=== PATIENT | female | born 1990 | race Caucasian/White ===

== ENCOUNTER 2017-10-13 17:24 | Emergency (ER) | payer OTHER ==
[2017-10-13 18:10] VITALS: BP 121/69
--- NOTE | 2017-10-13 18:14 | UC ---
[facility] HPI - HPI Summary HPI Summary: Pt presents with right upper tooth dental abscess. She called her PCP 3 days ago and was placed on clindamycin without being seen. Since that time pt says that her pain is well controlled with ibuprofen, but the swelling is increasing on the right side of her face. No vision trouble. Is able to eat and drink, but has pain with opening her mouth. Denies fever, chills, SOB, trouble breathing, chest pain, n/v/d/c. - History of Current Complaint Chief Complaint: UCDentalProblem Stated Complaint: DENTAL PAIN Time Seen by Provider: 10/13/17 18:13 Hx Obtained From: Patient Hx Last Menstrual Period: 09/07/17 Onset/Duration: Gradual Onset Pain Intensity: 0 - Allergies/Home Medications Allergies/Adverse Reactions: Allergies Allergy/AdvReac Type Severity Reaction Status Date / Time MS Penicillins [Penicillins] Allergy Mild Rash Verified 10/13/17 17:59 animal dander Allergy Difficulty Verified 10/13/17 18:01 Breathing MS Dust Mite Extract Allergy Coughing Verified 10/13/17 17:59 [Dust Mite Extract] MS Pollen Extract Allergy Coughing Verified 10/13/17 17:59 [Pollen Extract] Home Medications: Home Medications Cetirizine* [ZyrTEC 10 MG TAB*] 10/13/17 [History] Clindamycin CAP* [Clindamycin CAP 150 MG CAP*] 300 mg PO QID PRN 10/13/17 [ History Confirmed 10/13/17] Divalproex DR TAB(*) [Depakote DR TAB(*)] 10/13/17 [History] PMH/Surg Hx/FS Hx/Imm Hx Other History Of: Hepatitis C - Surgical History Surgical History: None - Family History Family History: NON CONTRIBUTORY - Social History Occupation: Employed Full-time Lives: With Family Alcohol Use: Occasionally Substance Use Type: None Smoking Status (MU): Light Every Day Tobacco Smoker Type: Cigarettes Amount Used/How Often: 1 PACK/WEEK Household Exposure Type: Cigarettes - Immunization History Most Recent Tetanus Shot: up to date Review of Systems Constitutional: Negative Skin: Negative Eyes: Negative ENT: Dental Pain Respiratory: Negative Cardiovascular: Negative Gastrointestinal: Negative Neurological: Negative Psychological: Negative All Other Systems Reviewed And Are Negative: Yes Physical Exam Triage Information Reviewed: Yes Appearance: Well-Appearing, No Pain Distress, Well-Nourished Vital Signs: Initial Vital Signs Temp 97.9 F 10/13/17 18:02 Pulse 80 10/13/17 18:02 Resp 18 10/13/17 18:02 BP 121/69 10/13/17 18:02 Pulse Ox 100 10/13/17 18:02 Vital Signs Reviewed: Yes Eyes: Positive: Conjunctiva Clear, Other: - EOMI. Negative: Conjunctiva Inflamed, Discharge ENT: Positive: Hearing grossly normal, Pharynx normal, TMs normal, Dental tenderness, Uvula midline, Other - Moderate swelling to right upper cheek. No erythema. Negative: Pharyngeal erythema, Nasal congestion, Nasal drainage, TM bulging, TM dull, TM red, Tonsillar swelling, Tonsillar exudate, Hoarse voice, Sinus tenderness Dental: Positive: Percussion Tenderness @ - Tooth 15, Gross Decay/Caries @ - throughout, Dental Fracture @ - Tooth 15, Abscess @ - Tooth 15. Negative: Cervical Lymphadenopathy, Bleeding Neck: Positive: Supple, Nontender, No Lymphadenopathy Respiratory: Positive: Lungs clear, Normal breath sounds, No respiratory distress Cardiovascular: Positive: RRR, No Murmur, Pulses Normal Neurological: Positive: Alert Psychological: Positive: Age Appropriate Behavior Dental Complaint Course/Dx - Course Course Of Treatment: I had a long conversation with the pt regarding her condition. I suspect she has a dental abscess. She tells me that she has been on clindamycin multiple times over the last 5 years because she does not have a dentist and is picky about finding one for herself. I told her that it is possible her current abscess is resistant to clindamycin and she should seek further evaluation in the ED. She refused and wanted to try outpatient therapy. Given her allergies, antibiotic options are limited - I will try her with flagyl. I stressed to her the importance of going to the ED should her symptoms persist or worsen beyond 48 hours despite the addition of flagyl. She was in agreement with this plan. - Differential Dx/Diagnosis Provider Diagnoses: Dental abscess. Tooth fracture #15 Discharge - Discharge Plan Condition: Stable Disposition: HOME Prescriptions: Chlorhexidine MOUTHWASH 0.12%* [Peridex Mouth Wash 0.12%*] 15 ml PO BID #150 btl metroNIDAZOLE TAB* [Flagyl 250 mg TAB*] 250 mg PO TID #30 tab Patient Education Materials: Dental Abscess (ED) Referrals: Robyn Moreau MD [Primary Care Provider] - Additional Instructions: If you develop a fever, shortness of breath, chest pain, new or worsening symptoms - please call your PCP or go to the ED. 1) If your symptoms persist or worsen despite these additional antibiotics - please go directly to the ED.
== END 2017-10-13 18:42 | disposition home or self-care (01) ==
LOC: UCEAST 17:24
DX: F17.210 Nicotine dependence, cigarettes, uncomplicated (principal); K04.7 Periapical abscess without sinus; S02.5XXA Fracture of tooth (traumatic), initial encounter for closed fracture; Z88.0 Allergy status to penicillin
CPT/HCPCS: 99211; G0463

== ENCOUNTER 2018-12-21 17:56 | Emergency (ER) | payer OTHER ==
[2018-12-21 18:24] VITALS: BP 112/65
--- NOTE | 2018-12-21 19:57 | UC ---
[facility] HPI - HPI Summary HPI Summary: 28-year-old female presents with 4-5 day history of sore throat, nasal congestion, runny nose, and nonproductive cough. She also complains of 3 days of diarrhea. States she's been having 2-3 episodes a day typically first thing in the morning. Associated with some mild cramping that is relieved after defecation. Denies fever, chills, ear pain, dysphagia, chest pain, shortness of breath, nausea, or vomiting. - History of Current Complaint Chief Complaint: UCRespiratory Stated Complaint: RUNNY NOSE, HEADACHE, AND NAUSEA Time Seen by Provider: 12/21/18 19:18 Hx Obtained From: Patient Hx Last Menstrual Period: tubal Pain Intensity: 0 - Allergy/Home Medications Allergies/Adverse Reactions: Allergies Allergy/AdvReac Type Severity Reaction Status Date / Time animal dander Allergy Difficulty Verified 12/21/18 18:25 Breathing Penicillins Allergy Rash Verified 12/21/18 18:25 pollen extracts Allergy Coughing Verified 12/21/18 18:25 dust mites Allergy Coughing Uncoded 12/21/18 18:25 Home Medications: Home Medications NK [No Home Medications Reported] 12/21/18 [History Confirmed 12/21/18] PMH/Surg Hx/FS Hx/Imm Hx Previously Healthy: Yes Other History Of: Hepatitis C - Surgical History Surgical History: Yes Surgery Procedure, Year, and Place: tubal ligation, 3 teeth extracted. - Family History Known Family History: Positive: Non-Contributory - Social History Occupation: Employed Part-time Lives: With Family Alcohol Use: Rare Substance Use Type: None Smoking Status (MU): Light Every Day Tobacco Smoker Type: Cigarettes Amount Used/How Often: 1 PACK/WEEK Household Exposure Type: Cigarettes - Immunization History Most Recent Tetanus Shot: up to date Review of Systems All Other Systems Reviewed And Are Negative: Yes Constitutional: Negative: Fever, Chills Skin: Negative: Rash Eyes: Negative: Drainage, Eye Redness ENT: Positive: Sore Throat, Nasal Discharge, Sinus Congestion. Negative: Ear Ache, Sinus Pain/Tenderness Respiratory: Positive: Cough. Negative: Shortness Of Breath Cardiovascular: Negative: Palpitations, Chest Pain Gastrointestinal: Positive: Abdominal Pain, Diarrhea. Negative: Vomiting, Nausea Genitourinary: Negative: Dysuria, Hematuria, Frequency, Urgency Musculoskeletal: Positive: Negative Neurological: Positive: Negative Is Patient Immunocompromised?: No Physical Exam - Summary Physical Exam Summary: GENERAL APPEARANCE: Well developed, well nourished, alert and cooperative, and appears to be in no acute distress. EYES: Conjunctiva clear. No drainage. EARS: External auditory canals and tympanic membranes clear, hearing grossly intact. NOSE: Mild nasal congestion. No nasal discharge. THROAT: Pharynx normal. No tonsilar inflammation, swelling, exudate, or lesions. Uvula midline. Oral cavity normal. Teeth and gingiva in good general condition. NECK: Neck supple, non-tender without lymphadenopathy. CARDIAC: Normal S1 and S2. No S3, S4 or murmurs. Rhythm is regular. There is no peripheral edema, cyanosis or pallor. Extremities are warm and well perfused. Capillary refill is less than 2 seconds. Peripheral pulses intact. LUNGS: Clear to auscultation without rales, rhonchi, wheezing or diminished breath sounds. ABDOMEN: Positive bowel sounds. Soft, nondistended, nontender. No guarding or rebound. No masses or hepatosplenomegally. No CVA tenderness. MUSKULOSKELETAL: ROM intact to all extremities. No joint erythema or tenderness. Normal muscular development. Normal gait. SKIN: Skin normal color, texture and turgor with no lesions or eruptions. Triage Information Reviewed: Yes Vital Signs: Initial Vital Signs Temp 98.2 F 12/21/18 18:20 Pulse 98 12/21/18 18:20 Resp 18 12/21/18 18:20 BP 112/65 12/21/18 18:20 Pulse Ox 99 12/21/18 18:20 Vital Signs Reviewed: Yes Course/Dx - Course Course Of Treatment: 28-year-old female presents with 4-5 day history of sore throat, nasal congestion, runny nose, and nonproductive cough. She also complains of 3 days of diarrhea. States she's been having 2-3 episodes a day typically first thing in the morning. Associated with some mild cramping that is relieved after defecation. Denies fever, chills, ear pain, dysphagia, chest pain, shortness of breath, nausea, or vomiting. Afebrile. Vital signs stable. Exam was overall unremarkable except for some mild nasal congestion. Exam recommending symptomatic treatment for viral syndrome and conservative treatment for acute diarrhea. She is to follow-up with her primary care provider in 3 days if symptoms do not improve. Anticipatory guidance and warning symptoms were reviewed with the patient. Verbalizes understanding and agrees with plan of care. - Diagnoses Provider Diagnosis: Viral syndrome, Diarrhea Discharge - Sign-Out/Discharge Documenting (check all that apply): Patient Departure All imaging exams completed and their final reports reviewed: No Studies - Discharge Plan Condition: Stable Disposition: HOME Patient Education Materials: Acute Diarrhea (ED), Viral Syndrome (ED) Referrals: Shashank Morillo MD [Primary Care Provider] - 3 Days (If no improvement in symptoms.) Additional Instructions: Your history and exam are consistent with a viral infection. Viral infections do not respond to antibiotics and are limited to the treatment of symptoms. Viral infections typically run their course in 7-10 days. Drink plenty of fluids to avoid dehydration especially if you are running any fever. May use an over the counter decongestant such as Sudafed according to directions as needed for congestion. Take over the counter acetaminophen (Tylenol) or ibuprofen (Advil, Motrin) according to directions as needed for pain or fever. Use salt water gargles several times a day if you have a sore throat. You may also use Chloraseptic spray or Cepacol lonzenges according to directions which contain a numbing medication and can provide some temporary relief from your sore throat. Be sure to eat a well balanced diet. Boiled starches and cereals (potatoes, rice , cream of wheat, oatmeal) as well as food such as crackers, toast, bananas, soups and boiled vegetables are usually recommended if you are having watery diarrhea. Follow up with your primary care provider in 3 days if symptoms persist. Seek immediate medical attention in the emergency room if you have fever greater than 100.5 F despite taking acetaminophen or ibuprofen, have chest pain , difficulty breathing, are unable to swallow, or have any worsening of symptoms. - Billing Disposition and Condition Condition: STABLE Disposition: Home
== END 2018-12-21 20:40 | disposition home or self-care (01) ==
LOC: UCEAST 17:56
DX: B34.9 Viral infection, unspecified (principal); R19.7 Diarrhea, unspecified; F17.210 Nicotine dependence, cigarettes, uncomplicated; Z88.0 Allergy status to penicillin
CPT/HCPCS: 99211; G0463